=== PATIENT | female | born 1950 | race Hispanic/Latino ===

== ENCOUNTER → 2020-07-22 | Outpatient (CLI) | payer MEDICARE ==
[~2020-07-22] MED LIST: IOHEXOL-350 50ML VIAL IV ONE
== END | disposition home or self-care (01) ==
LOC: RAH 12:18
PROVIDERS: ATTEND Family Medicine
DX: I77.89 Other specified disorders of arteries and arterioles (principal); K44.9 Diaphragmatic hernia without obstruction or gangrene; R53.83 Other fatigue
CPT/HCPCS: 71270; Q9967